=== PATIENT | male | born 1940 | race Caucasian/White ===

== ENCOUNTER → 2016-11-22 | Outpatient (CLI) | payer MEDICARE, BC ==
[~2016-11-22] MED LIST: AMITIZA 8MCG8 MCG; ASPIRIN 81M81 MG/TA2; CARDI-OMEGA1000 MG; COZAAR 25MG25 MG/TAB; CRESTOR 10MG10 MG; LEVOXYL0.125 MG; METAMUCIL3.4 GM/Dos PO; MYRBETR25MG; MYRBETR25MG PO; NORCO 325 MG-51 TAB PO; PRILOSEC 20MG20 MG; SINGULAIR 110 MG/TAB; SYNTHROID0.137 MG; ZITHROMAX Z PA250 MG; ZYLOPRIM 300MG300 MG; ZYRTEC5 MG
== END ==
LOC: SUN.DIA 13:17
DX: E11.65 Type 2 diabetes mellitus with hyperglycemia (principal); Z79.4 Long term (current) use of insulin; E66.9 Obesity, unspecified; Z68.31 Body mass index [BMI] 31.0-31.9, adult; Z71.3 Dietary counseling and surveillance

== ENCOUNTER → 2016-12-22 | Outpatient (CLI) | payer MEDICARE, BC | LOC: SUN.DIA 11:05 | DX: E11.65 Type 2 diabetes mellitus with hyperglycemia (principal); Z79.4 Long term (current) use of insulin; E66.9 Obesity, unspecified; Z68.31 Body mass index [BMI] 31.0-31.9, adult; Z71.3 Dietary counseling and surveillance; E03.9 Hypothyroidism, unspecified ==

== ENCOUNTER → 2017-04-12 | Outpatient (CLI) | payer MEDICARE, BC | LOC: SUN.DIA 03-29 09:35 | DX: E11.65 Type 2 diabetes mellitus with hyperglycemia (principal); E66.9 Obesity, unspecified; Z68.31 Body mass index [BMI] 31.0-31.9, adult; Z71.3 Dietary counseling and surveillance; E03.9 Hypothyroidism, unspecified; Z79.4 Long term (current) use of insulin; M10.9 Gout, unspecified ==

== ENCOUNTER → 2017-04-13 | Outpatient (CLI) | payer MEDICARE, BC | LOC: COL.RAD 10:17 | DX: M25.512 Pain in left shoulder (principal) | CPT/HCPCS: J3301; Q9967 ==

== ENCOUNTER → 2017-08-29 | Outpatient (CLI) | payer MEDICARE, BC | LOC: SUN.DIA 10:56 | DX: E11.9 Type 2 diabetes mellitus without complications (principal); Z79.4 Long term (current) use of insulin; E03.9 Hypothyroidism, unspecified; E66.9 Obesity, unspecified; Z68.31 Body mass index [BMI] 31.0-31.9, adult; Z71.3 Dietary counseling and surveillance; Z87.891 Personal history of nicotine dependence | CPT/HCPCS: G0108 ==

== ENCOUNTER → 2018-03-07 | Outpatient (CLI) | payer MEDICARE, BC | LOC: SUN.DIA 02-27 16:39 | DX: E11.9 Type 2 diabetes mellitus without complications (principal); Z79.4 Long term (current) use of insulin; E03.9 Hypothyroidism, unspecified; E66.9 Obesity, unspecified; Z68.31 Body mass index [BMI] 31.0-31.9, adult; Z71.3 Dietary counseling and surveillance; Z87.891 Personal history of nicotine dependence ==

== ENCOUNTER → 2018-09-11 | Outpatient (CLI) | payer MEDICARE, BC | LOC: SUN.DIA 08-29 15:30 | DX: E11.9 Type 2 diabetes mellitus without complications (principal); E03.9 Hypothyroidism, unspecified; E66.9 Obesity, unspecified; Z79.4 Long term (current) use of insulin ==

== ENCOUNTER → 2019-03-12 | Outpatient (CLI) | payer MEDICARE, BC | LOC: SUN.DIA 13:23 | DX: E11.9 Type 2 diabetes mellitus without complications (principal); Z79.4 Long term (current) use of insulin; E03.9 Hypothyroidism, unspecified; E66.9 Obesity, unspecified | CPT/HCPCS: G0108 ==

== ENCOUNTER → 2019-09-12 | Outpatient (CLI) | payer MEDICARE, BC | LOC: DIA.ED 09:26 | DX: E11.9 Type 2 diabetes mellitus without complications (principal); E03.9 Hypothyroidism, unspecified; E66.9 Obesity, unspecified; Z79.4 Long term (current) use of insulin | CPT/HCPCS: G0108 ==

== ENCOUNTER → 2020-03-12 | Outpatient (CLI) | payer MEDICARE, BC | LOC: DIA.ED 09:30 | DX: E11.9 Type 2 diabetes mellitus without complications (principal) ==

== ENCOUNTER → 2020-09-07 | Outpatient (CLI) | payer MEDICARE, BC | LOC: DIA.ED 08:31 | DX: E11.9 Type 2 diabetes mellitus without complications (principal); Z79.4 Long term (current) use of insulin; E66.8 Other obesity; E03.9 Hypothyroidism, unspecified | CPT/HCPCS: G0270 ==